=== PATIENT | male | born 1985 | race African-American/Black ===

== ENCOUNTER 2024-09-19 09:06 | Outpatient (REF) | payer OTHER, SELFPAY ==
[2024-09-19 09:34] LABS: MANUAL DIFF FLAG NO
--- NOTE | 2024-09-19 09:35 | ECG_ITS ---
Test Reason : R00.2 Blood Pressure : */* mmHG Vent. Rate : 69 BPM Atrial Rate : 69 BPM P-R Int : 206 ms QRS Dur : 92 ms QT Int : 426 ms P-R-T Axes : 13 30 239 degrees QTcB Int : 456 ms Normal sinus rhythm Septal infarct , age undetermined ST & Marked T wave abnormality, consider anterolateral ischemia (vs LVH) Abnormal ECG No previous ECGs available Referred By: Sharifa Munguia Electronically Signed By: MISSY BENTON
--- OUTSIDE RECORDS SUMMARY | 2024-09-19 09:46 | XMS_ITS | Clinical Summary ---
Author Organization [facility] Address [address] [place] [address] Phone Care Team Providers Care Newscast Producer Name Role Phone Unavailable Primary Care Provider Unavailabl e Social History Tobacco Use Types Packs/Day Years Used Date Smoking Tobacco: Never Assessed Sex and Gender Information Value Date Recorded Sex Assigned at Not on file Legal Sex Male 1:08 PM EDT Gender Identity Not on file Sexual Orientation Not on file Plan of Treatment Health Maintenance Due Date Last Done Comments A1C (SCREENING) 1985 HIV SCREENING 1985 HEPATITIS C SCREENING 2001 HEPATITIS B VACCINE (1 of 3 - 19+ 3-dose series) 2002 TDAP/TD VACCINE 2005 COVID VACCINE ( season) 2024 INFLUENZA VACCINE (#1) 2024 ZOSTER (SHINGRIX) VACCINE (1 of 2) 2033 HUMAN PAPILLOMA VIRUS (HPV) VACCINE Aged Out No longer eligible b ased on patient's age to complete this topic PNEUMOCOCCAL VACCINE Aged Out No long er eligible based on patient's age to complete this topic Additional Source Comments Any HIV related-infromation that has been disclosed to you is from confidential records which are protected by state law. State law prohibits you from making any further disclosure of this HIV-related information without the specific written consent of the person to whom it pertains, or as otherwise permitted by law. Any unauthorized further disclosure in violation of state law may result in a fine or custodial sentence or both. A general authorization for the release of medical or other informationisNOT sufficient authorization for further disclosure.[facility]
--- OUTSIDE RECORDS SUMMARY | 2024-09-19 09:46 | XMS_ITS | Clinical Summary ---
Author Organization [facility] Address [address] [place] [address] Care Team Providers Care Sustainability Specialist Name Role Phone Unavailable Primary Care Provider Unavailabl e Social History Tobacco Use Types Packs/Day Years Used Date Smoking Tobacco: Never Assessed Sex and Gender Information Value Date Recorded Sex Assigned at Not on file Legal Sex Male 2:48 PM EST Gender Identity Not on file Sexual Orientation Not on file Plan of Treatment Health Maintenance Due Date Last Done Comments Tetanus / Tdap Shot 1983 Annual Physical Exam 1995 Depression Screening 2001 Hepatitis C Antibody Screen 2001 COVID-19 Vaccine (2023-2 5 season) 2024 Flu Vaccine (Season Ended) 2025 Zoster Vaccines (1 of 2) 2033 Pneumococcal Vaccine: Pediat rics (0 to 5 Years) and At-Risk Patients (6 to 64 Years) Aged Out No longer eligi ble based on patient's age to complete this topic
[2024-09-19 10:09] LABS: Basophils Percent Auto 0.5 % (0-2); Eosinophils Percent Auto 0.2 % (0-4); Hematocrit 52.3 % (42.0-52.0); Hemoglobin 16.8 g/dl (14.0-18.0); Imm Gran Abs Auto 0.02 X10*3/uL (0.00-0.03); Imm Gran Pct Auto 0.3 % (0.0-0.4); Lymphocytes Absolute Auto 2.7 X10*3/uL (1.2-4.9); Lymphocytes Percent Auto 40.5 % (20-40); Mean Corpuscular HGB Conc 32.1 g/dl (31.0-36.0); Mean Corpuscular Hemoglobin 27.3 pg (27.0-33.0); Mean Platelet Volume 9.2 fL (9.4-12.4); Monocytes Absolute Auto 0.6 X10*3/uL (0.1-1.2); Monocytes Percent Auto 8.8 % (2-11); Neutrophils Absolute Auto 3.3 x10*3/uL (2.0-8.3); Neutrophils Percent Auto 49.7 % (45-73); Platelet Count 315 X10*3/uL (160-400); Red Blood Count 6.15 X10*6/uL (4.60-5.80); Red Cell Distribution Width 13.2 % (11.0-16.0); White Blood Count 6.6 X10*3/uL (4.8-10.8)
[2024-09-19 10:23] LABS: Troponin-I High Sensitivity 3.8 ng/L (<3.5-35.0)
[2024-09-19 10:35] LABS: Alanine Aminotransferase 57 U/L (0-40); Albumin Level 4.3 g/dL (3.5-5.0); Alkaline Phosphatase 103 U/L (39-117); Anion Gap 9 (12-20); Aspartate Amino Transferase 28 U/L (5-37); Blood Urea Nitrogen 15 mg/dL (9-16); Carbon Dioxide 29 mmol/L (22-29); Chloride 106 mmol/L (96-108); Cholesterol 149 mg/dL (<200); Estimated Glomerular Filt Rate > 60; Glucose Random 106 mg/dL (60-115); HDL Cholesterol 34 mg/dL (>40); LDL Cholesterol Calculated 74 mg/dL (<100); Potassium 3.8 mmol/L (3.3-5.1); Sodium 140 mmol/L (135-145); Total Protein 7.3 g/dL (6.5-8.0); Triglycerides 205 mg/dL (<150)
[2024-09-19 10:43] LABS: Thyroid Stimulating Hormone 2.44 uIU/mL (0.32-4.0); Vitamin D 25-OH Total 19.7 ng/mL (>30)
== END 2024-09-19 09:07 | disposition home or self-care (01) ==
LOC: HO.LAB 09:06
PROVIDERS: Visit Provider Student in an Organized Health Care Education/Training Program
DX: R07.9 Chest pain, unspecified (principal); R00.2 Palpitations; N40.0 Benign prostatic hyperplasia without lower urinary tract symptoms; D64.9 Anemia, unspecified; R25.2 Cramp and spasm; E55.9 Vitamin D deficiency, unspecified; R53.83 Other fatigue; Z12.5 Encounter for screening for malignant neoplasm of prostate
CPT/HCPCS: 36415; 80053; 80061; 82306; 83735; 84153; 84443; 84484; 85025; 93005

== ENCOUNTER → 2024-09-19 09:35 | Outpatient (BNV) | payer OTHER, SELFPAY | PROVIDERS: Visit Provider Internal Medicine | DX: R94.31 Abnormal electrocardiogram [ECG] [EKG] (principal); R00.2 Palpitations | CPT/HCPCS: 93010 ==

== ENCOUNTER 2024-09-21 10:19 | Outpatient (AMB) | payer OTHER, SELFPAY ==
--- NOTE | 2024-09-21 10:25 | A.OFFVIS_ITS ---
Vital Signs 09/21/24 10:26 Height 5 ft 9 in Weight 222 lb 10.67 oz BMI 32.9 BP 120/78 Blood Pressure Location Lt brachial Position Sitting Pulse 78 Pulse Source Pulse Oximeter Intake Visit Reasons: Chronic ischemic heart disease Allergies No Known Allergies Allergy (Verified 08/11/24 08:38) Medication List - Last Reconciled 09/21/24 by David Stover MD No Known Home Meds HPI Comments Details: Aditya has been referred her generally for cardiac evaluation. His is our sawmill production worker and he had complained about some concerning symptoms which led to her evaluating him with an EKG. That was abnormal and it seems that she has already ordered and scheduled a coronary CTA for him at [facility]. In this context, she was referred to me for evaluation. Patient denies any prior cardiac history. Recently, he has been noticing some palpitations which are very brief and lasting just about a minute or so. He his had mentioned about chest pains but he repeatedly denies any clear exertional angina or rest angina or in fact any form of chest pains. He denies any shortness of breath with activity. No dizzy spells or syncopal episodes. No prior history of any cardiomyopathy. There is also no family history of inherited cardiac conditions. Denies any hypertension history. [facility] Family History (Updated 09/21/24 @ 10:29 by Mesha Acevedo) Maternal Grandfather Heart problem Mother No problems noted. Father No problems noted. Social History (Updated 09/21/24 @ 10:29 by Mesha Acevedo) Alcohol intake: never Patient Tobacco Use Status: Never used Tobacco Review of Systems Const Denies weakness ENT Denies dizziness Card Denies chest pain, Denies chest pain with activity, Denies syncope, Denies rapid heart rate, Denies pedal edema, Denies edema, Denies leg edema, Denies lightheadedness, Reports palpitations, Denies dyspnea, Denies dyspnea on exertion and Denies orthopnea Resp Denies cough, Denies dyspnea and Denies dyspnea on exertion GI Denies hematochezia and Denies change in stool character Musc Denies abnormal gait, Denies muscle cramps, Denies muscle weakness, Denies numbness, Denies radiating pain into limb and Denies tingling Neuro Denies abnormal gait, Denies dizziness, Denies syncope, Denies numbness, Denies tingling and Denies weakness Endo Reports palpitations Physical Exam Vital Signs: Last Vital Signs Pulse 78 09/21/24 10:26 BP 120/78 09/21/24 10:26 BMI result Body Mass Index 32.9 Const General: comfortable and no acute distress Orientation/consciousness: patient oriented x3 HEENT Other: Unremarkable Head: Yes normal to inspection Neck Neck: Yes normal visual inspection Chest Chest palpation & inspection: normal inspection of the chest Resp Auscultation: clear to auscultation bilaterally Cardio Palpation: normal PMI Heart sounds: S1 normal heart sound present, S2 normal heart sound present, no gallops, no murmurs and no rubs GI Palpation (GI): Soft to palpation Back/Spine/Pelvis Other: unremarkable Skin General skin exam: no rashes or lesions noted Neuro General: patient oriented x3 Extrem General: Yes normal to inspection Psych Mental Status: mental status grossly normal Assessment & Plan Assessment & Plan (1) Abnormal EKG: Code(s): R94.31 - Abnormal electrocardiogram [ECG] [EKG] Category: Medical (2) Heart palpitations: Code(s): R00.2 - Palpitations Category: Medical Plan In the EKG, underlying rhythm is sinus at 69/Min. There are deep T inversions in the anterior leads, inferior leads as well as lead V1. Borderline [place] prolongation 206 milliseconds. Normal corrected QT. This pattern could suggest hypertrophic cardiomyopathy. Less likely ischemic heart disease but but clearly needs evaluation for that as well. It seems that he already has a coronary CTA arranged for today and he can keep that appointment. We will get an echocardiogram to assess for cardiac function and left ventricular hypertrophy and any other structural findings. Recent high sensitivity troponin was within normal range. Based on the findings on above testing, we will plan further care. Orders: Orders CT Cardiac Coronary Angio Today I25.10 - Atherosclerotic heart disease of [place] coronary artery without angina pectoris CA echo transthoracic complete Today I42.1 - Obstructive hypertrophic cardiomyopathy Coding Level of Care Code New Pt Level 4 (87104) Complex EM visit Add On G2211 Diagnoses Abnormal EKG R94.31 Heart palpitations R00.2
[2024-09-21 10:26] VITALS: BP 120/78; PULSE 78; BMI 32.9
--- OUTSIDE RECORDS SUMMARY | 2024-09-21 11:53 | XMS_ITS | Clinical Summary ---
Author Organization [facility] Address [address] [place] [address] Care Team Providers Care Moisture Meter Operator Name Role Phone Unavailable Primary Care Provider [...]
--- OUTSIDE RECORDS SUMMARY | 2024-09-21 11:53 | XMS_ITS | Clinical Summary ---
Author Organization [facility] Address [address] [place] [address] Phone Care Team Providers Care Business Planning Manager Name Role Phone Unavailable Primary Care Provider [...] law may result in a fine or half-way sentence or both. A general authorization for the release of medical or other informationisNOT sufficient authorization for further disclosure.[facility]
== END 2024-09-21 10:47 | disposition home or self-care (01) ==
LOC: HO.HCS 10:19
PROVIDERS: PCP Student in an Organized Health Care Education/Training Program; Visit Provider Internal Medicine
DX: R94.31 Abnormal electrocardiogram [ECG] [EKG] (principal); R00.2 Palpitations
CPT/HCPCS: 99214

== ENCOUNTER → 2025-01-11 14:44 | Outpatient (REF) | payer OTHER, SELFPAY ==
--- NOTE | 2025-01-11 14:47 | CA_ITS ---
Transthoracic Echocardiogram Patient (Last, First, Middle): Aditya Lamas, Gender: Male Date of : 1985 Age: 39 Procedure Date: 01/11/2025 Procedure Type: Transthoracic Echocardiogram Location: OP Height: 175.26 cm Weight: 100.7 kg BSA: 2.16 m2 Heart Rate: bpm BP: 120 / 78 mmHg Residential Program Director: KATTY Referring MD: David Stover MD Uniform Patrol Police Officer: Gabe Osman MD Symptoms: I42.1 - Obstructive hypertrophic cardiomyopathy Study Quality: Adequate with contrast ECG Rhythm: Sinus Conclusions: - 1. Hyperdynamic LV ejection fraction of greater than 70% with [id number] asymmetric septal hypertrophy with suggestive of mi dynamic obstructive physiology. consider cardiac MRI 2. Normal cardiac valvular Dopplers 3. No gross pericardial effusion Findings Procedure Information Contrast agent, definity, is being given per protocol without apparent complications. Left Ventricle Normal left ventricular cavity size. There is normal left ventricular wall thickness. The left ventricular systolic function is hyperdynamic. The visually estimated ejection fraction is >70%. There is systolic anterior motion of the chordae of the mitral valve. Spectral Doppler is indicative of a normal filling pattern. There is moderate septal asymmetric hypertrophy. at rest there was no significant gradient with peak gradient of about 4-6 mm Hg. However with Valsalva there seems to be an increasing gradient to 25 mm Hg suggestive of mild obstructive physiology. Clinical correlation suggested. Consider cardiac MRI Right Ventricle Normal right ventricular cavity size and systolic function. Atria The left atrium is normal in size. Interatrial shunt cannot be excluded. The right atrium is normal in size. Aortic Valve The aortic valve structure and function is likely normal. There is no aortic valve stenosis. There is no aortic valve regurgitation. Mitral Valve Normal mitral valve structure and function. There is trace mitral valve regurgitation. Pulmonic Valve The pulmonic valve was not well visualized. Tricuspid Valve Likely normal tricuspid valve structure and function. Tricuspid regurgitation envelope is inadequate for calculation of right ventricular systolic pressure. Normal right atrial pressure. Great Vessels All visible segments of the aorta are normal in size. The pulmonary artery was not well visualized. There is no dilatation of the ascending aorta measuring 2.41 cm. Venous The inferior vena cava is normal in size and collapses greater than 50% with inspiration. Pericardium/Pleural There is no evidence of pericardial effusion. Prior Study Comparison No prior study available for comparison. Measurements 2D Linear Measurements IVSd: 1.42 0.6-0.9/0.6-1.0 cm LVIDd: 3.96 3.9-5.3/4.2-5.9 cm LVIDd Index: 1.83 2.4-3.2/2.2-3.1 cm/m2 LVIDs: 2.43 2.0-3.6 cm LVPWd: 1.03 0.7-1.1 cm LA Diam: 3.30 2.7-3.8/3.0-4.0 cm LAIDs Index: 1.53 1.5-2.3 cm/m2 LV Mass: 209.33 67-162/88-224 g LV Mass Index: 96.91 43-95/49-115 g/m2 LVOT Diam: 2.20 3.0+(-)1.3 cm Mitral Valve MV Pk E: 0.76 MV PK A: 0.48 MV Decel Time: 226.00 E/A: 1.60 E'Lateral: 10.90 E'Medial: 5.55 E/E' Med: 13.60 E/E' Lat: 6.90 PHT: 66.00 MVA PHT: 3.33 Decel [place]: 3.35 Aortic Valve AoV Pk Luca: 1.45 AoV Mn Luca: 1.05 AoV VTI: 0.30 AoV Pk Grad: 8.00 Aov Mn Grad: 5.00 LAURA Cont.VTI: 3.30 LVOT LVOT Pk Luca: 1.25 LVOT Mn Luca: 0.92 LVOT VTI: 0.26 LVOT Pk Grad: 6.00 LVOT Mn Grad: 4.00 LVOT Diam: 2.20 LVOT Area: 3.80 Diastolic Function MV Pk E: 0.76 MV Pk A: 0.48 E/A: 1.60 E'Medial: 5.55 E/E' Med: 13.60 E' Laterial: 10.90 E/E' Lat: 6.90 Right Ventricle TAPSE (mm): 20.90 TVS' Luca: 14.70 Tricuspid Valve RA Press: 3.00 Great Vessels Aorta Sinus of Valsalva: 3.04 2.0-3.[address] [place]: 3.04 1.7-3.4 cm Ao Asc: 2.41 2.1-3.4 cm Ao Arch: 2.50 Pulmonary Valve PV Pk Luca: 1.64 PV Min Luca: 1.08 Peak PV Grad: 11.00 PV Mn Grad: 5.00 Shunting QP:QS: 0.90 Updated in Other Vendor System with Status of Final Gabe Osman MD electronically signed on 01/11/2025 4:45:25 PM with status of Final
--- OUTSIDE RECORDS SUMMARY | 2025-01-11 15:22 | XMS_ITS | Clinical Summary ---
Author Organization [facility] Address [address] [place] [address] Phone Care Team Providers Care Crm Manager Name Role Phone Unavailable Primary Care Provider Unavailabl e Social History Tobacco Use Types Packs/Day Years Used Date Smoking Tobacco: Never Assessed Sex and Gender Information Value Date Recorded Sex Assigned at Not on file Legal Sex Male 1:08 PM EDT Gender Identity Not on file Sexual Orientation Not on file Plan of Treatment Health Maintenance Due Date Last Done Comments HIV SCREENING 1983 HEPATITIS C SCREENING 2001 HEPATITIS B VACCINE (1 of 3 - 19+ 3-dose series) 2002 TDAP/TD VACCINE 2005 HUMAN PAPILLOMA VIRUS (HPV) VACCINE (1 - 3-dose SCDM series) 2010 COVID VACCINE ( - 2023- season) 2024 INFLUENZA VACCINE (#1) 2025 ZOSTER (SHINGRIX) VACCINE (1 of 2) 2033 PNEUMOCOCCAL VACCINE Aged Out No long er [...] law may result in a fine or senior care sentence or both. A general authorization for the release of medical or other informationisNOT sufficient authorization for further disclosure.[facility]
--- OUTSIDE RECORDS SUMMARY | 2025-01-11 15:22 | XMS_ITS | Clinical Summary ---
Author Organization [facility] Address [address] [place] [address] Care Team Providers Care Plater Supervisor Name Role Phone Unavailable Primary Care Provider Unavailabl e Social History Tobacco Use Types Packs/Day Years Used Date Smoking Tobacco: Never Assessed Sex and Gender Information Value Date Recorded Sex Assigned at Male 09/26/2024 2:03 PM EDT Legal Sex Male 2:48 PM EST Gender Identity Male 09/26/2024 2:03 PM EDT Sexual Orientation Don't know 09/26/2024 2: 03 PM EDT Last Filed Vital Signs Vital Sign Reading Time Taken Comments Blood Pressure 107/65 09/26/2024 2:41 PM EDT Pulse 63 09/26/2024 2:41 PM EDT Temperature - - Respiratory Rate 20 09/26/2024 2:41 PM EDT Oxygen Saturation 99% 09/26/2024 2:41 PM EDT Inhaled Oxygen Concentration - - Weight - - Height - - Body Mass Index - - Plan of Treatment Health Maintenance Due Date Last Done Comments Tetanus / Tdap Shot 1983 Annual Physical Exam 1995 Depression Screening 2001 Hepatitis C Antibody Screen 2001 COVID-19 Vaccine (2023-2 5 season) 2024 Flu Vaccine (#1) 01/29/2025 Zoster Vaccines (1 of 2) 2033 Pneumococcal Vaccine: Pediat rics (0 to 5 Years) and At-Risk Patients (6 to 64 Years) Aged Out No longer eligi ble based on patient's age to complete this topic Insurance BCBS [facility]
--- OUTSIDE RECORDS SUMMARY | 2025-01-11 15:22 | XMS_ITS | Patient Health Record ---
Author Organization [address] [place] [address] [place] [address] [address] [place], [place] [id number] Support Name Relationship Address Phone Aditya Lamas Guarantor Unknown Reason For Referral No Information Medications Medication SIG (Take, Route, Frequency, Duration) Notes Start Date End Date Status No Known No Known *[facility] and Interaction Alerts* Active Problems Problem Type SNOMED Code ICD Code Onset Dates Problem Status W/U Status Risk Notes Problem Dietary surveillance and counseling (V65.3) 4 Active confirmed [id number] 26- Plan Of Treatment No Information
== END ==
LOC: HO.CARD 14:44
PROVIDERS: Visit Provider Internal Medicine
DX: I42.1 Obstructive hypertrophic cardiomyopathy (principal)
CPT/HCPCS: 93306; Q9957

== ENCOUNTER → 2025-01-11 14:47 | Outpatient (BNV) | payer OTHER, SELFPAY | PROVIDERS: Visit Provider Internal Medicine Cardiovascular Disease | DX: I42.1 Obstructive hypertrophic cardiomyopathy (principal); I51.89 Other ill-defined heart diseases | CPT/HCPCS: 93306 ==

== ENCOUNTER 2025-01-23 13:28 | Outpatient (AMB) | payer OTHER, SELFPAY ==
[2025-01-23 13:42] VITALS: BP 118/80; PULSE 74; BMI 34.2
--- NOTE | 2025-01-23 13:42 | A.OFFVIS_ITS ---
Vital Signs 01/23/25 13:42 Height 5 ft 9 in Weight 231 lb 7.766 oz BMI 34.2 BP 118/80 Blood Pressure Location Lt brachial Position Sitting Pulse 74 Pulse Source Pulse Oximeter Intake Visit Reasons: 3 month f/up cta echo Allergies No Known Allergies Allergy (Verified 08/11/24 08:38) Medication List - Last Reconciled 01/23/25 by David Stover MD No Known Home Meds HPI Comments Details: Aditya returns for follow-up. Recently seen in consultation regarding an abnormal EKG. is our rn peritoneal dialysis and she had mentioned that patient had complained of some palpitations and chest pains. However, patient currently denies in fact any symptoms whatsoever. When we saw him, EKG did look quite ab normal raising suspicion for hypertrophic cardiomyopathy. He has completed an echocardiogram and coronary CTA so far. Overall, he states he feels well. No clear-cut symptoms. There was no family history of hypertrophic cardiomyopathy but he states there is a cousin of similar age who suddenly. Unknown reason. Not a known hypertensive. [facility] Medical History (Updated 01/23/25 @ 14:26 by David Stover MD) Hypertrophic cardiomyopathy Family History (Updated 09/21/24 @ 10:29 by Mesha Acevedo) Maternal Grandfather Heart problem Mother No problems noted. Father No problems noted. Social History (Updated 09/21/24 @ 10:29 by Mesha Acevedo) Alcohol intake: never Patient Tobacco Use Status: Never used Tobacco Review of Systems Const Denies weakness ENT Denies dizziness Card Denies chest pain, Denies chest pain with activity, Denies syncope, Denies rapid heart rate, Denies pedal edema, Denies edema, Denies leg edema, Denies lightheadedness, Denies palpitations, Denies dyspnea, Denies dyspnea on exertion and Denies orthopnea Resp Denies cough, Denies dyspnea and Denies dyspnea on exertion GI Denies hematochezia and Denies change in stool character Musc Denies abnormal gait, Denies muscle cramps, Denies muscle weakness, Denies numbness, Denies radiating pain into limb and Denies tingling Neuro Denies abnormal gait, Denies dizziness, Denies syncope, Denies numbness, Denies tingling and Denies weakness Endo Denies palpitations Physical Exam Vital Signs: Last Vital Signs Pulse 74 01/23/25 13:42 BP 118/80 01/23/25 13:42 BMI result Body Mass Index 34.2 Const General: comfortable and no acute distress Orientation/consciousness: patient oriented x3 HEENT Other: Unremarkable Head: Yes normal to inspection Neck Neck: Yes normal visual inspection Chest Chest palpation & inspection: normal inspection of the chest Resp Auscultation: clear to auscultation bilaterally Cardio Palpation: normal PMI Heart sounds: S1 normal heart sound present, S2 normal heart sound present, no gallops, no murmurs and no rubs GI Palpation (GI): Soft to palpation Back/Spine/Pelvis Other: unremarkable Skin General skin exam: no rashes or lesions noted Neuro General: patient oriented x3 Extrem General: Yes normal to inspection Psych Mental Status: mental status grossly normal Assessment & Plan Assessment & Plan (1) Hypertrophic cardiomyopathy: Code(s): I42.2 - Other hypertrophic cardiomyopathy Category: Medical Plan Cardiac studies reviewed. In the EKG, underlying rhythm is sinus at 69/Min. There are deep T inversions in the anterior leads, inferior leads as well as lead V1. Borderline [place] prolongation 206 milliseconds. Normal corrected QT. In the echocardiogram, hyperdynamic LVEF, > 70%; moderate septal hypertrophy. Resting gradient was about 4-6 mm Hg but with Valsalva, increase to 25 mm Hg. No significant valvular dysfunction. Coronary CTA shows normal coronaries. Calcium score is 0. Overall, he has hypertrophic cardiomyopathy. We discussed about this condition in detail and he needs further workup which includes cardiac MRI, Holter monitor and ETT versus exercise stress echo. Would also need Genetics panel. Also discussed with his who is a physician. We discussed the fact that due to the patient living in [place], should probably find a hypertrophic cardiomyopathy specialty center locally and coordinate his care including all the above testing. agrees with the above. She will actually a suitable location for further workup and management. In the interim, advised to avoid any strenuous physical activity including high- intensity sports. They will contact us with any ongoing concerns. Total time spent including review of data, counseling, documentation, coordination of care -32 minutes. Coding Level of Care Code Est Pt Level 4 (97502) Complex EM visit Add On G2211 Diagnoses Hypertrophic cardiomyopathy I42.2
--- OUTSIDE RECORDS SUMMARY | 2025-01-23 14:26 | XMS_ITS | Clinical Summary ---
Author Organization [facility] Address [address] [place] [phone] Phone Care Team Providers Care Copy Holder Name Role Phone Unavailable Primary Care Provider [...] law may result in a fine or penitentiary sentence or both. A general authorization for the release of medical or other informationisNOT sufficient authorization for further disclosure.[facility] and [facility]
--- OUTSIDE RECORDS SUMMARY | 2025-01-23 14:26 | XMS_ITS | Patient Health Record ---
Author Organization [address] [place] [address] [place] [address] [address] [place], [place] [id number] Support Name Relationship Address Phone Aditya Lamas Guarantor Unknown [phone] Reason For Referral No Information Medications Medication SIG (Take, Route, Frequency, Duration) Notes Start Date End Date Status No Known No Known *Reorde r from [employer] for eRx and Interaction Alerts* Active Problems Problem Type SNOMED Code ICD Code Onset Dates Problem Status W/U Status Risk Notes Problem Dietary management surveillance ([id number]) Dietary surveillance and counseling (V65.3) 10/17/19 14 Active confirmed [id number]- Plan Of Treatment No Information
--- OUTSIDE RECORDS SUMMARY | 2025-01-23 14:26 | XMS_ITS | Clinical Summary ---
Author Organization [facility] Address [address] [place] [id number] Care Team Providers Care Supervisor Grove Name Role Phone Unavailable Primary Care Provider [...] complete this topic Insurance BCBS OUT OF [facility]
== END 2025-01-23 14:10 | disposition home or self-care (01) ==
LOC: HO.HCS 13:29
PROVIDERS: Visit Provider Internal Medicine
DX: I42.2 Other hypertrophic cardiomyopathy (principal)
CPT/HCPCS: 99214